=== PATIENT | male | born 1995 | race Asian ===

== ENCOUNTER 2017-08-05 22:06 | Emergency (ER) | payer BC ==
[2017-08-05 23:54] VITALS: BP 127/76
== END 2017-08-05 23:54 | disposition home or self-care (01) ==
LOC: ED 22:06
DX: S43.085A Other dislocation of left shoulder joint, initial encounter (principal); X58.XXXA Exposure to other specified factors, initial encounter; Y93.67 Activity, basketball; Y92.310 Basketball court as the place of occurrence of the external cause; Y99.8 Other external cause status
CPT/HCPCS: J1885; J2250; Q0092